=== PATIENT | female | born 1975 | race Caucasian/White ===

== ENCOUNTER 2016-08-03 14:04 | Outpatient (CLI) | payer OTHER ==
[2014-04-07 09:26] VITALS: BP 136/86
== END 2016-08-03 14:05 ==
LOC: POD 14:04
PROVIDERS: ATTEND Podiatrist
DX: M76.71 Peroneal tendinitis, right leg (principal)
CPT/HCPCS: 99214

== ENCOUNTER 2016-09-25 13:00 | Outpatient (CLI) | payer OTHER ==
[2014-04-07 09:26] VITALS: BP 136/86
== END 2016-09-25 13:15 | disposition home or self-care (01) ==
LOC: POD 13:00
PROVIDERS: ATTEND Podiatrist
DX: M72.2 Plantar fascial fibromatosis (principal)
CPT/HCPCS: 20550

== ENCOUNTER 2016-11-20 12:10 | Outpatient (CLI) | payer OTHER ==
[2014-04-07 09:26] VITALS: BP 136/86
== END 2016-11-20 14:00 ==
LOC: POD 12:10
PROVIDERS: ATTEND Podiatrist
DX: M54.31 Sciatica, right side (principal); M79.671 Pain in right foot
CPT/HCPCS: 99213

== ENCOUNTER 2016-12-06 08:47 | Emergency (ER) | payer OTHER ==
--- NOTE | 2016-12-06 09:02 | ED Physician Documentation ---
General Adult - HISTORIAN Historian: patient - HPI Stated Complaint: headache Chief Complaint: General Adult Onset: days ago Timing: still present Severity: moderate Further Comments: yes (Pt is a 41 yo female with a headache that began 3 days ago. Pt has hx migraines for which she took Tylenol, Benedryl, Compazine, & Magnesium. Pt had R upper extremity weakness that she first noticed 2 days ago. 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 Pt states that she has gotten facial numbness with migraines in the past. In the past two days, this numbness has been intermitent. Pt has had nausea.) - ROS CONST: no problems EYES/ENT: none CVS/RESP: none GI/: nausea MS/SKIN/LYMPH: other (R UE weakness) NEURO/PSYCH: headache, other (R sided weakness, facial droop.) - PAST HX Past History: other (migraines; Lirqa-Cctwg-Nvpaw dz.) Other History: other (depression) Allergies/Adverse Reactions: Allergies Allergy/AdvReac Type Severity Reaction Status Date / Time No Known Allergies Allergy Verified 12/06/16 09:06 Home Medications: Ambulatory Orders Medication Instructions Recorded Escitalopram Oxalate [Lexapro] 20 mg PO DAILY 12/06/16 Trazodone HCl [Trazodone HCl] 25 mg PO HS 12/06/16 - SOCIAL HX Smoking History: less than 1 pack/day - FAMILY HX Family History: No - VITAL SIGNS Vital Signs: Vital Signs Temp Pulse Resp BP Pulse Ox 136/86 04/07/14 09:24 - REVIEWED ASSESSMENTS Nursing Assessment Reviewed: Yes Vitals Reviewed: Yes Progress - Progress Progress: Zofran 4 mg IV Transfer to [facility], Dr. Houston, neurology. - EKG/XRAY/CT CT: CT brain w/o contrast: no intracranial abnormality. General Adult Physical Exam - PHYSICAL EXAM GENERAL APPEARANCE: mild distress EENT: eye inspection normal, ENT inspection normal, pharynx normal NECK: normal inspection, supple RESPIRATORY: no resp distress, chest non-tender, breath sounds normal CVS: reg rate & rhythm, heart sounds normal ABDOMEN: soft, no organomegaly, normal bowel sounds BACK: normal inspection, no CVA tenderness SKIN: warm/dry, normal color EXTREMITIES: non-tender, normal range of motion, no evidence of injury NEURO: oriented X3, other (R upper extremity weakness 4+ vs L 5+; R facial droop ; R LE DTR not elicited vs L 2+.) Discharge Clincal Impression: Headache; R UE weakness; R facial droop. Referrals: Vernon Burton MD [Primary Care Provider] - 2 Days Home Medications: Ambulatory Orders Escitalopram Oxalate [Lexapro] 20 mg PO DAILY 12/06/16 Trazodone HCl [Trazodone HCl] 25 mg PO HS 12/06/16 Condition: Stable Disposition: 02 XFER SHT-TRM HOSP Decision to Admit: NO Decision Time: 09:52
[2016-12-06 09:15] LABS: BASOPHILS % 1.1 (0.0-1.5); EOSINOPHILS % 3.3 % (0.0-6.8); MEAN CORPUSCULAR HEMOGLOBIN 29.6 pg (28.0-34.0); MEAN CORPUSCULAR VOLUME 87.3 fl (80.0-100.0); MONOCYTES % 3.5 % (0.0-11.0); NEUTROPHILS # 5.2 # k/uL (1.4-7.7)
[2016-12-06 09:36] LABS: eGFR (African) > 60; eGFR (Non-African) > 60
[2016-12-06] MEDS ORDERED: ONDANSETRON HCL/PF 4 MG/ 2ML VIAL IVP ONE (09:57)
[2016-12-06] MEDS ORDERED: ONDANSETRON HCL/PF 4 MG/ 2ML VIAL ONE (09:58)
[2016-12-06 10:13] VITALS: BP 127/76
--- NOTE | 2016-12-06 13:26 | Diagnostic Imaging Report ---
[facility] [address] [facility] [place], [place]. [address] Report Submission Date: Dec 06, 2016 9:56:47 AM CDT Patient Study Name: EMI FORD Date: Dec 06, 2016 9:12:08 AM CDT Modality Type: CT\SR Gender: F Description: CT BRAIN W/O CONTRAST : 79 Institution: [facility] Physician ADIS SANCHEZ - ER CT HEAD WO CONTRAST History: HEADACHE, RT SIDED WEAKNESS X4 DAYS Technique: Standard noncontrast CT was performed with contiguous axial images acquired from skull base to vertex Findings: There is no acute extra-axial fluid collection. Ventricles are of normal size, shape, and morphology. No mass effect or midline shift is present. No evidence of acute hemorrhage. The garcia-white matter differentiation is normal. The visualized portions of the orbits, and paranasal sinuses, and mastoids are normal. No fractures are identified. Impression: 1. Normal non contrast brain CT. Findings discussed with Dr. Sanchez in the ER at 0955 hrs central standard time. Electronically signed on Dec 06, 2016 9:56:47 AM CDT by: Arjun Milner [facility] CENTERJeane
== END 2016-12-06 10:09 | disposition short-term general hospital (02) ==
LOC: ED 08:47
DX: R51 Headache (principal); R53.1 Weakness; R29.810 Facial weakness
CPT/HCPCS: 70450; 80053; 85025; 85610; 85730; J2405; 96372; 99284; S1016

== ENCOUNTER 2017-05-01 13:27 | Outpatient (CLI) | payer OTHER ==
--- NOTE | 2017-05-01 13:52 | Diagnostic Imaging Report ---
RADHA PALACIO [facility] [address] [facility] [address]. [address] Report Submission Date: May 01, 2017 1:47:49 PM STRUCTURAL BIOLOGIST Patient Study Name: EMI FORD Date: May 01, 2017 1:38:10 PM STRUCTURAL BIOLOGIST Modality Type: CR Gender: F Description: CHEST : 79 Institution: [facility] Physician: RADHA PALACIO Examination: PA and lateral chest. History: Evaluate lung muñoz. Comparison exam: None provided Findings: PA lateral chest demonstrate a normal cardiac and mediastinal silhouette. No focal infiltrate. No blunting of the costophrenic margins. Osseous structures are appropriate for age. Impression: No acute pulmonary process. Electronically signed on May 01, 2017 1:47:49 PM STRUCTURAL BIOLOGIST by: Lasha LAZAR
== END 2017-05-01 13:30 ==
LOC: RAD 13:27
PROVIDERS: ATTEND Physician Assistant
DX: R05 Cough (principal)
CPT/HCPCS: 71020